=== PATIENT | female | born 1980 | race Caucasian/White ===

== ENCOUNTER 2024-08-27 14:29 | Emergency (ER) | payer MEDICAID, SELFPAY ==
[2024-08-27 14:30] VITALS: BP 117/80; PULSE 76; RESP 19; TEMP 36.8; O2SAT 97; BMI 36.4
--- NOTE | 2024-08-27 15:01 | EDS_ITS ---
HPI HPI - Psych History of Present Illness Chief Complaint: Mental Health Informant: patient and spouse/S.O. Onset/Context/Timing Onset: Days Context: Gradual Onset Timing: Continuous Relieved by: Nothing Associated Symptoms Associated Symptoms - Psych: Positive for Agitated and Paranoia; Negative for Suicidal Thoughts, Visual Hallucinations or Auditory Hallucinations Narrative Narrative: Patient presents with paranoid ideations and agitation that has been getting worse over the past couple days. Patient was referred to the emergency department for likely admission to psychiatric facility. Patient has been noncompliant with her medications. Patient has a history of bipolar disorder and mood disorder. Patient denies any suicidal or homicidal ideations. Patient denies any visual or auditory hallucinations. [facility] Medical History (Updated 08/27/24 @ 22:[address] Paul Nunez DO) Mood disorder Bipolar disorder Home Medications ?Medication ?Instructions ?Recorded ?Last Taken ?Type L.acidoph, paracasei,B. lactis 10 1 ea PO DAILY 11/15/16 Unknown History billion cell capsule Menetril Control DAILY 11/15/16 Unknown History amitriptyline 10 mg tablet 10 mg PO QHS 11/15/16 Unknown History cyclobenzaprine 10 mg tablet 10 mg PO TID PRN Muscle Spasm ##20 11/15/16 Unknown Rx multivitamin (Multiple Vitamins 1 ea PO DAILY 11/15/16 Unknown History tablet) naproxen 500 mg tablet 500 mg PO BID PRN #20 tabs 11/15/16 Unknown Rx Allergy/AdvReac Type Severity Reaction Status Date / Time No Known Allergies Allergy Verified 11/15/16 19:00 Surgical History (Updated 08/27/24 @ 15:[address] Paul Nunez DO) Hx of appendectomy Social History Smoking Status: Never smoker ROS ROS ED Constitutional Constitutional ED: Denies chills or fever(s) Eyes Eyes: Denies blurry vision or change in vision ENT ENT ED: Denies rhinorrhea or sore throat Cardiovascular Cardiovascular: Denies chest pain or palpitations Respiratory/Chest Respiratory/Chest: Denies cough or dyspnea Gastrointestinal Gastrointestinal: Denies nausea or vomiting Genitourinary Genitourinary ED: Denies dysuria or hematuria Musculoskeletal Musculoskeletal: Denies back pain or neck pain Integumentary Denies abscess or rash Neurologic Neurologic: Denies headache(s) or weakness Allergic/Immunologic Allergic/Immunologic ED: Denies mouth swelling or urticaria EXAM Physical Exam Const Vital Signs: 08/27/24 14:30 08/27/24 22:30 Temperature 98.2 F Temperature Source Oral Pulse Rate 76 92 Respiratory Rate 19 H 16 Blood Pressure 117/80 145/68 H Blood Pressure Mean 92 93 Pulse Ox 97 99 Oxygen Delivery Method Room Air Room Air Positive well nourished and well developed General Appearance ED: well developed and NAD HEENT Reports moist mucous membranes Neck supple and no JVD Resp normal respiratory effort and clear to auscultation bilaterally Cardio Rate: regular rate Rhythm: regular rhythm GI non-tender and non-distended Palpation: soft Extremity normal to inspection General Extremety ED: Negative for edema or tenderness General Extremity: Negative for edema Neuro oriented x3, CN's II-XII intact bilaterally and no sensory deficits noted [place] Coma Scale: document GCS findings Spontaneous Obeys Commands Oriented 15 Sensorium / Orientation: alert Motor Exam: strength 5/5 throughout Psych cooperative Appearance: grossly normal Speech: minimal Mood & Affect: flat affect Thought Content: No suicidality, No homicidality and delusion(s) Delusional Thought Content Details: Positive for paranoid MDM MDM MDM Narrative Medical decision making narrative: Medical screening labs will be obtained. CBC will be obtained to assess for leukocytosis and anemia. Basic metabolic profile will be obtained to assess for electrolyte abnormality and renal function. Serum alcohol level will be obtained to assess for alcohol intoxication. Urine tox screen will be obtained to assess for substance abuse. Serum hCG will be obtained to assess for . Lab Data Attestation: I reviewed the patient's lab results. Lab results narrative: CBC was reviewed. There is a mild leukocytosis of 12.1. The remainder is within normal limits. Basic metabolic profile was reviewed and was within normal limits. Urine tox screen was reviewed and was negative. Serum alcohol level was reviewed and was negative. Serum hCG was reviewed and was negative. Labs: Laboratory Results - last 24 hr 08/27/24 08/27/24 15:30 15:41 WBC 12.1 H RBC 4.65 Hgb 14.1 Hct 43.1 MCV 92.7 MCH 30.3 MCHC 32.7 RDW Std Deviation 44.0 H RDW Coeff of Renard 13.0 Plt Count 282 MPV 9.5 Immature Gran % (Auto) 0.400 Neut % (Auto) 69.2 Lymph % (Auto) 22.0 [place] % (Auto) 6.8 Eos % (Auto) 1.0 Baso % (Auto) 0.6 Absolute Neuts (auto) 8.4 H Absolute Lymphs (auto) 2.66 Nucleated RBC % 0 Sodium 138 Potassium 4.0 Chloride 106 Carbon Dioxide 23.0 Anion Gap 9 BUN 15 Creatinine 0.91 Estim Creat Clear Calc 93.02 Est GFR (MDRD) Af Amer 87 Est GFR (MDRD) Non-Af 72 BUN/Creatinine Ratio 16.5 Glucose 102 Calcium 9.3 Serum , Qual NEGATIVE Urine Opiates Screen NEGATIVE Urine Methadone Screen NEGATIVE Ur Barbiturates Screen NEGATIVE Ur Phencyclidine Scrn NEGATIVE Ur Amphetamines Screen NEGATIVE MDMA (Ecstasy) Screen NEGATIVE U Benzodiazepines Scrn NEGATIVE Urine Cocaine Screen NEGATIVE U Cannabinoids Screen NEGATIVE Ur Drug Screen Comment Ethyl Alcohol < 3.0 Management Discussion w/another healthcare provider: Behavioral health Treatment and Re-Evaluation Narrative: Patient is medically cleared for crisis evaluation. Crisis was in to evaluate the patient and felt the patient would benefit from hospitalization in a psychiatric facility. Crisis counselor will attempt to arrange for placement in a psychiatric facility. Family understood and was agreeable with the plan. All questions were answered. Care of the patient will be turned over to the oncoming physician pending psychiatric placement and transfer. Discharge Plan Triage Chief Complaint: Mental Health ED Provider: Paul Nunez Dx/Rx/DC Orders Clinical Impression: Bipolar disorder, Paranoid ideation, Nita Prescriptions: No Action multivitamin [Multiple Vitamins] 1 EACH tablet 1 ea PO DAILY amitriptyline 10 MG tablet 10 mg PO QHS L.acidoph, paracasei,B. lactis 1 EACH capsule 1 ea PO DAILY Menetril Control DAILY naproxen 500 MG tablet 500 mg PO BID PRN Qty: 20 0RF cyclobenzaprine 10 MG tablet 10 mg PO TID PRN (Reason: Muscle Spasm) Qty: 20 0RF Primary Care Provider: Care Physician,No Primary Referrals: Care Physician,No Primary [Primary Care Provider] - Print Language: Slovak Disposition Disposition: Psychiatric Hospital or Unit
[2024-08-27 15:44] LABS: Absolute Lymphocyte Count 2.66 X10^3/uL (0.83-4.51); Absolute Neutrophil Count 8.4 X10^3/uL (2.0-7.7); Basophil# 0.07 X10^3/uL; Basophil% 0.6 % (0-1); Eosinophil# 0.12 X10^3/uL; Hematocrit 43.1 % (37-47); Hemoglobin 14.1 g/dL (12.0-15.0); Lymphocyte # 2.66 X10^3/ul (0.83-4.51); Mean Corp Hgb Conc 32.7 g/dL (32-36); Mean Corpuscular Hgb 30.3 pg (27.0-32.0); Mean Corpuscular Volume 92.7 fL (81-99); Mean Platelet Vol. 9.5 fl (6.2-12.0); Monocyte# 0.82 X10^3/uL; Monocyte% 6.8 % (0-10); NRBC Flagged by Analyzer 0 % (0-5); Neutrophil # 8.37 X10^3/uL (2.7-7.7); Neutrophil % 69.2 % (47-70); Platelet Count 282 K/mm3 (150-450); Red Blood Count 4.65 M/mm3 (4.2-5.4); White Blood Count 12.1 K/mm3 (4.4-11.0)
--- NOTE | 2024-08-27 15:50 | ED.RN ---
DR. GREEN BELIEVES PT NEEDS A 1;1 SITTER. SITTER AT BESIDE. ROOM CLEARED, BELONGINGS STORED IN BACK ROOM AND LABELED
[2024-08-27 16:05] LABS: Alcohol, Blood (Medical)-Serum < 3.0 mg/dL
[2024-08-27 16:07] LABS: Anion Gap 9 (5-15); BUN 15 mg/dL (7-18); BUN/Creat Ratio 16.5 RATIO (10-20); Calcium,Total 9.3 mg/dL (8.5-10.1); Chloride 106 mmol/L (98-107); Creatinine, Serum 0.91 mg/dL (0.55-1.02); EST Glomerular Filtration Rate 72 mL/min (>60); Est Glom Filt Rate - Afr Amer 87 mL/min (>60); Estimated Creatinine Clearance 93.02 ml/min; Glucose 102 mg/dL (74-106); Sodium Level 138 mmol/L (136-145)
[2024-08-27 16:23] LABS: Internal QC Validated? YES +Cl - CLEAR BKGD; Pregnancy, Serum, hCG Quali. NEGATIVE Negative
[2024-08-27 16:24] LABS: Record Kit Lot#, Serum Preg. 772476
[2024-08-27 17:03] LABS: Amphetamine Urine VISTA NEGATIVE (<1000 ng/mL); Barbiturate Urine VISTA NEGATIVE (< 200 ng/mL); Benzodiazepine Urine VISTA NEGATIVE (< 200 ng/mL); Cocaine Urine VISTA NEGATIVE (< 300 ng/mL); Ecstacy Urine VISTA NEGATIVE (< 500 ng/mL); Methadone Urine VISTA NEGATIVE (< 300 ng/mL); PCP Urine VISTA NEGATIVE (< 25 ng/mL); THC Urine VISTA NEGATIVE (< 50 ng/mL)
--- NOTE | 2024-08-27 18:58 | ED.RN ---
FAXED PT RESULTS TO [facility]
[2024-08-27 22:30] VITALS: BP 145/68; PULSE 92; RESP 16; O2SAT 99
--- NOTE | 2024-08-28 00:15 | ED.RN ---
Addendum entered by Thad Griffin 08/28/24 00:22: 0004: PHONE CALL TOOK PLACE AT THIS TIME. INCORRECT CHARTED TIME IN PREVIOUS NURSING NOTE. Original Note: [id number]: I SPOKE W/ JERO FROM [facility] [employer] ABOUT ACCEPTANCE. INFORMATION OBTAINED AND PROVIDER NOTIFIED.
[2024-08-28 00:25] VITALS: BP 133/66; PULSE 71; RESP 16; TEMP 36.9; O2SAT 98
--- NOTE | 2024-08-28 00:34 | ED.RN ---
0030: REPORT CALLED TO CHAVO FLOREZ RN AT [facility]. NO FURTHER QUESTIONS BY THE NURSE AT THIS TIME.
[2024-08-28 06:00] VITALS: BP 102/67; PULSE 68; RESP 18; O2SAT 98
[2024-08-30 06:01] LABS: Vista UDS pH Range 6
== END 2024-08-28 07:57 ==
PROVIDERS: Emergency Provider Emergency Medicine; Visit Provider Emergency Medicine
DX: F31.2 Bipolar disorder, current episode manic severe with psychotic features (principal); Z91.148 Patient's other noncompliance with medication regimen for other reason; Z79.899 Other long term (current) drug therapy
CPT/HCPCS: 80048; 80307; 82077; 84703; 85025; 99285